=== PATIENT | male | born 1980 | race Caucasian/White ===

== ENCOUNTER 2024-01-06 19:22 | Emergency (ER) | payer SELFPAY | END 2024-01-06 21:46 | disposition home or self-care (01) | LOC: JD.ED 19:22 | DX: K40.90 Unilateral inguinal hernia, without obstruction or gangrene, not specified as recurrent (principal) | CPT/HCPCS: 76705; 76705-26; 99283 ==

== ENCOUNTER 2024-01-22 11:14 | Day surgery (SDC) | payer SELFPAY ==
[~2024-01-22 11:14] MED LIST: Dexamethasone 4 MG/ML 5 ML MDV ONE; Midazolam 1 MG/ML 2 ML SDV ONE; Ondansetron 4 MG/2 ML SDV ONE; Propofol 200 MG/20 ML SDV ONE; Sodium Chloride 0.9% 10 ML Syringe FLUSH PRN; Sodium Chloride 0.9% 10 ML Syringe FLUSH SCH; fentaNYL 100 MCG/2 ML SDV ONE
[2024-01-22] MEDS ORDERED: Lactated Ringers 1,000 ML IV ONE (11:15)
[2024-01-22] MEDS ORDERED: fentaNYL 100 MCG/2 ML SDV IVPUSH PRN (11:29)
[2024-01-22] MEDS ORDERED: Ondansetron 4 MG/2 ML SDV IVPUSH PRN (11:29)
[2024-01-22] MEDS ORDERED: HYDROmorphone 0.5 MG/0.5 ML Syringe IVPUSH PRN (11:29)
[2024-01-22] MEDS ORDERED: Propofol 200 MG/20 ML SDV ONE (11:44)
[2024-01-22] MEDS ORDERED: ceFAZolin 2 GM Vial ONE (11:48)
[2024-01-22] MEDS: Lactated Ringers 1,000 ML IV SCH (11:50)
[2024-01-22] MEDS: EPINEPHrine 1 MG/ML SDV ONE (14:22)
[2024-01-22] MEDS: Bupivacaine 0.5% 30 ML SDV ONE (14:22)
[2024-01-22] MEDS ORDERED: oxyCODONE 5 MG Tab PO PRN (15:03)
== END 2024-01-22 16:20 | disposition home or self-care (01) ==
LOC: JD.SDS 11:14
PROVIDERS: ATTEND Surgery
DX: K40.90 Unilateral inguinal hernia, without obstruction or gangrene, not specified as recurrent (principal)
CPT/HCPCS: 49505; J0171; J0665; J0690; J1100; J2250; J2405; J2704; J3010; J7120; C1781